=== PATIENT | female | born 1965 | race Caucasian/White ===

== ENCOUNTER 2020-04-14 18:08 | Inpatient (IN) | payer MEDICARE, MEDICAID ==
[~2020-04-14] VITALS: Ht 160 cm; Wt 84.8 kg
[~2020-04-14 18:08] MED LIST: DIVA-73 PO; DIVA-75 PO; LACO50TA2 PO; PHEN50TA2 PO
[2020-04-14] MEDS ORDERED: SODIUM CHLORIDE 0.9% 1000ML BAG (SEPSIS BOLUS) IV ONE (19:15)
[2020-04-14] MEDS ORDERED: HALOPERIDOL LACTATE 5MG/ML VIAL IM ONE (19:15)
[2020-04-14] MEDS ORDERED: PIPERACILLIN/TAZ 3.375G PREMIX 50 ML IV ONE (19:15)
[2020-04-14] MEDS ORDERED: VANCOMYCIN 1 G PREMIX 200 ML IV ONE (19:15)
[2020-04-14 20:36] LABS: BASOPHILS % 0.4 % (0.0-2.0); EOSINOPHILS % 1.1 % (0.0-5.0); HEMATOCRIT. 30.5 % (36.0-48.0); HEMOGLOBIN. 10.1 g/dL (12.0-16.0); LYMPHOCYTES % 16.7 % (20.0-50.0); MEAN CORPUSCULAR VOLUME 90.8 fL (81.0-99.0); MEAN PLATELET VOLUME 11.8 fl (7.4-10.4); MONOCYTES % 11.6 % (2.0-8.0); NEUTROPHILS % 70.2 % (40.0-76.0); PLATELET 142 x1000/uL (130-400); RED BLOOD CELL COUNT 3.36 mill/uL (4.2-5.4); RED CELL DISTRIBUTION WIDTH 13.3 % (11.6-14.6)
[2020-04-14 20:41] LABS: CHLORIDE 101 mEq/L (98-107)
[2020-04-14 20:45] LABS: INR 1.1; PROTHROMBIN TIME 11.1 sec (9.6-11.0)
[2020-04-14] MEDS: ENOXAPARIN 60MG/0.6ML SYR SUBCUT SCH (23:00)
[2020-04-14] MEDS ORDERED: ONDANSETRON HCL 4MG/2ML INJ IV PRN (23:15)
[2020-04-14] MEDS ORDERED: ZOLPIDEM TARTRATE 5MG TABLET PO PRN (23:15)
[2020-04-14] MEDS ORDERED: DOCUSATE SODIUM 100MG CAPSULE PO PRN (23:15)
[2020-04-14] MEDS ORDERED: ACETAMINOPHEN 325MG TABLET PO PRN ×2 (23:15)
[2020-04-14] MEDS ORDERED: IPRATROPIUM/ALBUTEROL 0.5-3(2.5)MG/3ML NEB NEB PRN (23:15)
[2020-04-14] MEDS ORDERED: MAGNESIUM/ALUMINUM HYDROXIDE/SIMETHICONE 30ML UDC PO PRN (23:15)
[2020-04-14] MEDS ORDERED: PIPERACILLIN/TAZ 3.375G PREMIX 50 ML IV SCH (23:15)
[2020-04-14] MEDS ORDERED: KETOROLAC 15MG/ML VIAL IV PRN (23:15)
[2020-04-14] MEDS ORDERED: NITROGLYCERIN 0.4MG TABLET SL SL PRN (23:15)
[2020-04-14] MEDS ORDERED: GUAIFENESIN 200MG/10ML SUGAR FREE UDC PO PRN (23:15)
[2020-04-14] MEDS ORDERED: NOREPINEPHRINE 8MG/250ML PMX 250 ML IV PRN (23:30)
[2020-04-14] MEDS ORDERED: ALBUMIN HUMAN 25GM/100ML (25%) IV NR (23:30)
[2020-04-15 05:34] LABS: BASOPHILS % 0.3 % (0.0-2.0); EOSINOPHILS % 1.8 % (0.0-5.0); HEMATOCRIT. 27.5 % (36.0-48.0); HEMOGLOBIN. 9.4 g/dL (12.0-16.0); LYMPHOCYTES % 11.2 % (20.0-50.0); MEAN PLATELET VOLUME 10.6 fl (7.4-10.4); MONOCYTES % 7.4 % (2.0-8.0); NEUTROPHILS % 79.3 % (40.0-76.0); PLATELET 97 x1000/uL (130-400); RED BLOOD CELL COUNT 3.02 mill/uL (4.2-5.4); RED CELL DISTRIBUTION WIDTH 13.3 % (11.6-14.6)
[2020-04-15 05:40] LABS: CHLORIDE 107 mEq/L (98-107)
[2020-04-15 05:46] LABS: PHOSPHORUS 3.5 mg/dL (2.5-4.9)
[2020-04-15] MEDS: PANTOPRAZOLE SODIUM 40 MG/VIAL IV SCH (09:17)
[2020-04-15] MEDS: DEXT 5%/LACTATED RINGERS 1,000 ML IV SCH ×2 (09:18→09:30)
[2020-04-15] MEDS: PIPERACILLIN/TAZOBACTAM 2.25 G in DEXTROSE 5% WATER 50 ML IV SCH ×2 (09:18→15:52)
[2020-04-15] MEDS: ZINC SULFATE 220 MG ( 50 ) CAPSULE PO SCH (09:25)
[2020-04-15] MEDS: ASPIRIN 325MG TABLET PO SCH (09:25)
[2020-04-15] MEDS: PHENYTOIN SODIUM EXTENDED 100MG CAPSULE PO SCH (09:29)
[2020-04-15] MEDS: ASCORBIC ACID 500 MG TABLET PO SCH (09:29)
[2020-04-15] MEDS: DIVALPROEX SODIUM 250MG ER TABLET PO SCH (09:40)
[2020-04-15] MEDS ORDERED: MAGNESIUM 2 G PREMIX 50 ML IV NR (10:30)
[2020-04-15] MEDS ORDERED: KCL 20MEQ/100ML PREMIX 100 ML IV NR (10:30)
[2020-04-15] MEDS: VANCOMYCIN 1 G PREMIX 200 ML IV SCH (11:17)
[2020-04-15] MEDS ORDERED: VANCOMYCIN 750 MG PREMIX 150 ML IV SCH (12:00)
[2020-04-15] MEDS ORDERED: IPRATROPIUM/ALBUTEROL 0.5-3(2.5)MG/3ML NEB HHN PRN (15:45)
[2020-04-15] MEDS: CLONIDINE 0.1MG TABLET PO PRN (18:49)
[2020-04-15] MEDS ORDERED: NOREPINEPHRINE 8 MG in DEXT 5% WATER 242 ML IV PRN (23:00)
[2020-04-16] MEDS: PHENYTOIN SODIUM EXTENDED 100MG CAPSULE PO SCH ×3 (02:22→20:01)
[2020-04-16] MEDS: ASCORBIC ACID 500 MG TABLET PO SCH ×3 (02:22→20:01)
[2020-04-16] MEDS: ENOXAPARIN 60MG/0.6ML SYR SUBCUT SCH ×2 (02:26→20:04)
[2020-04-16] MEDS: PIPERACILLIN/TAZOBACTAM 2.25 G in DEXTROSE 5% WATER 50 ML IV SCH ×6 (02:37→21:15)
[2020-04-16] MEDS: DEXT 5%/LACTATED RINGERS 1,000 ML IV SCH ×2 (05:15→16:16)
[2020-04-16 06:01] LABS: BASOPHILS % 0.4 % (0.0-2.0); EOSINOPHILS % 5.3 % (0.0-5.0); HEMATOCRIT. 32.1 % (36.0-48.0); LYMPHOCYTES % 11.3 % (20.0-50.0); MEAN CORPUSCULAR HEMOGLOBIN 30.9 pg (28.0-32.0); MEAN CORPUSCULAR VOLUME 89.8 fL (81.0-99.0); MONOCYTES % 8.4 % (2.0-8.0); NEUTROPHILS % 74.6 % (40.0-76.0); PLATELET 118 x1000/uL (130-400); RED BLOOD CELL COUNT 3.57 mill/uL (4.2-5.4); RED CELL DISTRIBUTION WIDTH 13.1 % (11.6-14.6)
[2020-04-16 06:06] LABS: CHLORIDE 108 mEq/L (98-107)
[2020-04-16 06:12] LABS: PHOSPHORUS 1.9 mg/dL (2.5-4.9)
[2020-04-16] MEDS: CLONIDINE 0.1MG TABLET PO PRN ×4 (07:20→22:08)
[2020-04-16] MEDS: ZINC SULFATE 220 MG ( 50 ) CAPSULE PO SCH (09:10)
[2020-04-16] MEDS: ASPIRIN 325MG TABLET PO SCH (09:10)
[2020-04-16] MEDS: TRAMADOL 50MG TABLET PO PRN (09:10)
[2020-04-16] MEDS: DIVALPROEX SODIUM 250MG ER TABLET PO SCH (09:11)
[2020-04-16] MEDS: PANTOPRAZOLE SODIUM 40 MG/VIAL IV SCH (09:12)
[2020-04-16] MEDS: VANCOMYCIN 1 G PREMIX 200 ML IV SCH ×2 (09:12→20:01)
[2020-04-16] MEDS: IPRATROPIUM/ALBUTEROL 0.5-3(2.5)MG/3ML NEB HHN SCH (10:00)
[2020-04-16] MEDS: AMLODIPINE 10MG TABLET PO SCH (10:14)
[2020-04-16 11:30] VITALS: BP 186/78
[2020-04-16] MEDS ORDERED: ONDA4TAB11 PO (12:49)
[2020-04-16] MEDS ORDERED: LEVO88TA7 PO (12:49)
[2020-04-16] MEDS ORDERED: HYDR-4248 TP (12:49)
[2020-04-16] MEDS ORDERED: DICL100G31 TP (12:49)
[2020-04-16] MEDS ORDERED: HALO5TAB PO (12:49)
[2020-04-16] MEDS ORDERED: CHLO50TA22 PO (12:49)
[2020-04-16] MEDS ORDERED: LORA2TAB95 PO (12:49)
[2020-04-16] MEDS ORDERED: LACO50TA2 PO (12:49)
[2020-04-16] MEDS ORDERED: LACT10SO6 PO (12:49)
[2020-04-16] MEDS ORDERED: DIPH25CA83 PO (12:49)
[2020-04-16] MEDS ORDERED: BENZ1TAB7 PO (12:49)
[2020-04-16] MEDS ORDERED: ARIP400S IM (12:49)
[2020-04-16] MEDS ORDERED: NAPR500T7 PO (12:49)
[2020-04-16] MEDS ORDERED: PRAZ1CAP5 PO (12:49)
[2020-04-16] MEDS ORDERED: TRAZ150T78 PO (12:49)
[2020-04-16] MEDS ORDERED: ACET325S17 PO (12:49)
[2020-04-16] MEDS ORDERED: CALC-38 PO (12:49)
[2020-04-16] MEDS ORDERED: CODE473S5 MT (12:49)
[2020-04-16] MEDS ORDERED: PHEN50TA2 PO (12:49)
[2020-04-16] MEDS ORDERED: PANT40TA4 PO (12:49)
[2020-04-16] MEDS ORDERED: CLON0.2T PO (12:49)
[2020-04-16] MEDS ORDERED: QUET200T29 PO (12:49)
[2020-04-16 16:00] VITALS: BP 172/85
[2020-04-16 18:42] VITALS: BP 141/98
[2020-04-16 20:00] VITALS: BP 198/79
[2020-04-16] MEDS ORDERED: VANCOMYCIN 1 G PREMIX 200 ML IV SCH (21:00)
[2020-04-16 22:18] VITALS: BP 204/95
[2020-04-16 23:05] VITALS: BP 156/77
[2020-04-17] VITALS (7 sets, daily range): BP systolic 153–194; BP diastolic 69–88
[2020-04-17] MEDS: DEXT 5%/LACTATED RINGERS 1,000 ML IV SCH ×3 (01:30→21:02)
[2020-04-17] MEDS: PIPERACILLIN/TAZOBACTAM 2.25 G in DEXTROSE 5% WATER 50 ML IV SCH ×4 (03:04→21:02)
[2020-04-17] MEDS: CLONIDINE 0.1MG TABLET PO PRN (04:26)
[2020-04-17 06:51] LABS: CHLORIDE 110 mEq/L (98-107)
[2020-04-17] MEDS: PHENYTOIN SODIUM EXTENDED 100MG CAPSULE PO SCH ×2 (08:31→21:05)
[2020-04-17] MEDS: ASCORBIC ACID 500 MG TABLET PO SCH ×2 (08:32→21:04)
[2020-04-17] MEDS: AMLODIPINE 10MG TABLET PO SCH (08:32)
[2020-04-17] MEDS: DIVALPROEX SODIUM 250MG ER TABLET PO SCH (08:32)
[2020-04-17] MEDS: ZINC SULFATE 220 MG ( 50 ) CAPSULE PO SCH (08:32)
[2020-04-17] MEDS: ASPIRIN 325MG TABLET PO SCH (08:32)
[2020-04-17] MEDS: PANTOPRAZOLE SODIUM 40 MG/VIAL IV SCH (08:32)
[2020-04-17] MEDS: ENOXAPARIN 60MG/0.6ML SYR SUBCUT SCH ×2 (08:33→21:04)
[2020-04-17] MEDS: LISINOPRIL 40MG TABLET PO SCH (09:46)
[2020-04-17] MEDS: METOPROLOL TARTRATE 25MG TABLET PO SCH ×2 (10:36→21:04)
[2020-04-17] MEDS: VANCOMYCIN 1 G PREMIX 200 ML IV SCH ×2 (10:36→23:01)
[2020-04-17] MEDS ORDERED: CLONIDINE HCL 0.3MG/24HR PATCH TD SCH (12:00)
[2020-04-17] MEDS: HYDRALAZINE HCL 50MG TABLET PO SCH ×2 (13:47→21:05)
[2020-04-17] MEDS: IPRATROPIUM/ALBUTEROL 0.5-3(2.5)MG/3ML NEB HHN SCH (21:49)
[2020-04-18] VITALS (7 sets, daily range): BP systolic 153–191; BP diastolic 76–93
[2020-04-18] MEDS: CLONIDINE 0.1MG TABLET PO PRN ×2 (00:42→15:51)
[2020-04-18] MEDS: IPRATROPIUM/ALBUTEROL 0.5-3(2.5)MG/3ML NEB HHN SCH ×4 (02:16→21:25)
[2020-04-18] MEDS: PIPERACILLIN/TAZOBACTAM 2.25 G in DEXTROSE 5% WATER 50 ML IV SCH ×2 (03:25→13:42)
[2020-04-18] MEDS: HYDRALAZINE HCL 50MG TABLET PO SCH ×3 (05:44→21:20)
[2020-04-18] MEDS: DEXT 5%/LACTATED RINGERS 1,000 ML IV SCH ×2 (07:30→18:36)
[2020-04-18] MEDS: ZINC SULFATE 220 MG ( 50 ) CAPSULE PO SCH (10:22)
[2020-04-18] MEDS: PANTOPRAZOLE SODIUM 40 MG/VIAL IV SCH (10:22)
[2020-04-18] MEDS: ASCORBIC ACID 500 MG TABLET PO SCH ×2 (10:22→21:20)
[2020-04-18] MEDS: DIVALPROEX SODIUM 250MG ER TABLET PO SCH (10:22)
[2020-04-18] MEDS: ASPIRIN 325MG TABLET PO SCH (10:23)
[2020-04-18] MEDS: LISINOPRIL 40MG TABLET PO SCH (10:23)
[2020-04-18] MEDS: METOPROLOL TARTRATE 25MG TABLET PO SCH ×2 (10:23→21:21)
[2020-04-18] MEDS: PHENYTOIN SODIUM EXTENDED 100MG CAPSULE PO SCH ×2 (10:23→21:21)
[2020-04-18] MEDS: AMLODIPINE 10MG TABLET PO SCH (10:23)
[2020-04-18] MEDS: VANCOMYCIN 1 G PREMIX 200 ML IV SCH (10:35)
[2020-04-18] MEDS: ENOXAPARIN 60MG/0.6ML SYR SUBCUT SCH ×2 (14:56→19:43)
[2020-04-18] MEDS: PIPERACILLIN/TAZOBACTAM 3.375 G in DEXT 5% WATER 100 ML IV SCH (21:20)
[2020-04-19] VITALS: BP 163/68
[2020-04-19] MEDS: PIPERACILLIN/TAZOBACTAM 3.375 G in DEXT 5% WATER 100 ML IV SCH ×4 (01:30→18:27)
[2020-04-19] MEDS: CLONIDINE 0.1MG TABLET PO PRN ×3 (01:34→19:49)
[2020-04-19] MEDS: IPRATROPIUM/ALBUTEROL 0.5-3(2.5)MG/3ML NEB HHN SCH ×4 (02:34→20:52)
[2020-04-19] MEDS: DEXT 5%/LACTATED RINGERS 1,000 ML IV SCH (03:38)
[2020-04-19 04:00] VITALS: BP 141/100
[2020-04-19] MEDS: HYDRALAZINE HCL 50MG TABLET PO SCH (06:06)
[2020-04-19 08:00] VITALS: BP 203/95
[2020-04-19] MEDS: AMLODIPINE 10MG TABLET PO SCH (08:38)
[2020-04-19] MEDS: METOPROLOL TARTRATE 25MG TABLET PO SCH ×2 (08:38→21:13)
[2020-04-19] MEDS: PHENYTOIN SODIUM EXTENDED 100MG CAPSULE PO SCH (08:38)
[2020-04-19] MEDS: ZINC SULFATE 220 MG ( 50 ) CAPSULE PO SCH (08:38)
[2020-04-19] MEDS: DIVALPROEX SODIUM 250MG ER TABLET PO SCH ×2 (08:38→08:59)
[2020-04-19] MEDS: LISINOPRIL 40MG TABLET PO SCH (08:39)
[2020-04-19] MEDS: ASCORBIC ACID 500 MG TABLET PO SCH ×2 (08:39→21:13)
[2020-04-19] MEDS: ASPIRIN 325MG TABLET PO SCH (08:39)
[2020-04-19] MEDS: ENOXAPARIN 60MG/0.6ML SYR SUBCUT SCH ×2 (08:40→21:00)
[2020-04-19] MEDS: PANTOPRAZOLE SODIUM 40 MG/VIAL IV SCH (08:45)
[2020-04-19] MEDS ORDERED: DIVALPROEX SODIUM 250MG ER TABLET PO ONE (10:00)
[2020-04-19] MEDS ORDERED: PHENYTOIN SODIUM IV SCH (11:00)
[2020-04-19] MEDS ORDERED: SODIUM CHLORIDE 0.9% IV SCH (11:00)
[2020-04-19] MEDS: NITROGLYCERIN OINT 1GM/INCH UDPKT TD SCH ×3 (11:03→21:14)
[2020-04-19 12:00] VITALS: BP 192/91
[2020-04-19] MEDS: PHENYTOIN SODIUM 100MG/2ML VIAL IV SCH ×2 (13:18→21:13)
[2020-04-19] MEDS: HYDRALAZINE HCL 100MG TABLET PO SCH ×2 (13:18→21:13)
[2020-04-19 16:00] VITALS: BP 170/85
[2020-04-19 18:01] LABS: HEMATOCRIT 34.9 % (36.0-48.0); HEMOGLOBIN 11.8 g/dL (12.0-16.0)
[2020-04-19] MEDS ORDERED: DESMOPRESSIN ACETATE IVPB 20 MCG in SODIUM CHLORIDE 0.9% 50 ML IV NR (19:30)
[2020-04-19 20:00] VITALS: BP 185/94
[2020-04-20] VITALS: BP 148/83
[2020-04-20] MEDS: IPRATROPIUM/ALBUTEROL 0.5-3(2.5)MG/3ML NEB HHN SCH ×3 (02:28→21:42)
[2020-04-20 04:00] VITALS: BP 144/90
[2020-04-20] MEDS: HYDRALAZINE HCL 100MG TABLET PO SCH ×3 (05:36→21:35)
[2020-04-20] MEDS: NITROGLYCERIN OINT 1GM/INCH UDPKT TD SCH ×3 (05:36→21:36)
[2020-04-20 08:00] VITALS: BP 171/91
[2020-04-20] MEDS: DIVALPROEX SODIUM 250MG ER TABLET PO SCH (08:46)
[2020-04-20] MEDS: PHENYTOIN SODIUM 100MG/2ML VIAL IV SCH (08:46)
[2020-04-20] MEDS: LISINOPRIL 40MG TABLET PO SCH (08:47)
[2020-04-20] MEDS: METOPROLOL TARTRATE 25MG TABLET PO SCH ×2 (08:47→21:35)
[2020-04-20] MEDS: ASCORBIC ACID 500 MG TABLET PO SCH ×2 (08:47→21:35)
[2020-04-20] MEDS: ASPIRIN 325MG TABLET PO SCH (08:47)
[2020-04-20] MEDS: PANTOPRAZOLE SODIUM 40 MG/VIAL IV SCH (08:47)
[2020-04-20] MEDS: ZINC SULFATE 220 MG ( 50 ) CAPSULE PO SCH (08:47)
[2020-04-20] MEDS: AMLODIPINE 10MG TABLET PO SCH (08:47)
[2020-04-20] MEDS: ENOXAPARIN 60MG/0.6ML SYR SUBCUT SCH ×2 (08:48→21:36)
[2020-04-20 08:59] LABS: HEMATOCRIT 25.3 % (36.0-48.0); HEMOGLOBIN 8.6 g/dL (12.0-16.0)
[2020-04-20] MEDS: TRAMADOL 50MG TABLET PO PRN (10:24)
[2020-04-20] MEDS: LORAZEPAM 1MG TABLET PO SCH ×2 (11:54→21:35)
[2020-04-20 12:00] VITALS: BP 128/50
[2020-04-20] MEDS: IRON SUCROSE COMPLEX 100 MG/5 ML ML IV SCH (12:01)
[2020-04-20 12:05] LABS: BASOPHILS % 0.6 % (0.0-2.0); EOSINOPHILS % 2.8 % (0.0-5.0); HEMATOCRIT. 23.7 % (36.0-48.0); HEMOGLOBIN. 8.1 g/dL (12.0-16.0); MEAN CORPUSCULAR HEMOGLOBIN 30.5 pg (28.0-32.0); MEAN CORPUSCULAR VOLUME 89.9 fL (81.0-99.0); MEAN PLATELET VOLUME 10.1 fl (7.4-10.4); MONOCYTES % 7.5 % (2.0-8.0); NEUTROPHILS % 78.1 % (40.0-76.0); PLATELET 131 x1000/uL (130-400); RED BLOOD CELL COUNT 2.64 mill/uL (4.2-5.4); RED CELL DISTRIBUTION WIDTH 13.1 % (11.6-14.6)
[2020-04-20 12:11] LABS: INR 1.6; PROTHROMBIN TIME 16.1 sec (9.6-11.0)
[2020-04-20 16:00] VITALS: BP 188/89
[2020-04-20] MEDS: CLONIDINE 0.1MG TABLET PO PRN (17:10)
[2020-04-20] MEDS: HALOPERIDOL LACTATE 5MG/ML VIAL IM PRN (17:25)
[2020-04-20 20:00] VITALS: BP 173/94
[2020-04-20] MEDS ORDERED: PHENYTOIN SODIUM 100MG/2ML VIAL IV SCH (21:00)
[2020-04-21] VITALS: BP 187/97
[2020-04-21 00:52] LABS: HEMATOCRIT 23.9 % (36.0-48.0); HEMOGLOBIN 8.3 g/dL (12.0-16.0)
[2020-04-21] MEDS: IPRATROPIUM/ALBUTEROL 0.5-3(2.5)MG/3ML NEB HHN SCH ×3 (01:54→12:50)
[2020-04-21] MEDS: HALOPERIDOL LACTATE 5MG/ML VIAL IM PRN (03:22)
[2020-04-21 04:00] VITALS: BP 170/94
[2020-04-21] MEDS: LORAZEPAM 1MG TABLET PO SCH ×2 (04:00→12:52)
[2020-04-21] MEDS: HYDRALAZINE HCL 100MG TABLET PO SCH ×2 (06:42→12:18)
[2020-04-21] MEDS: NITROGLYCERIN OINT 1GM/INCH UDPKT TD SCH ×2 (06:42→12:19)
[2020-04-21 08:00] VITALS: BP 191/137
[2020-04-21] MEDS: ENOXAPARIN 60MG/0.6ML SYR SUBCUT SCH (09:00)
[2020-04-21] MEDS: ASPIRIN 325MG TABLET PO SCH (09:00)
[2020-04-21] MEDS: DIVALPROEX SODIUM 250MG ER TABLET PO SCH (09:11)
[2020-04-21] MEDS: ASCORBIC ACID 500 MG TABLET PO SCH (09:11)
[2020-04-21] MEDS: PANTOPRAZOLE SODIUM 40 MG/VIAL IV SCH (09:11)
[2020-04-21] MEDS: ZINC SULFATE 220 MG ( 50 ) CAPSULE PO SCH (09:11)
[2020-04-21] MEDS: IRON SUCROSE COMPLEX 100 MG/5 ML ML IV SCH (09:11)
[2020-04-21] MEDS: AMLODIPINE 10MG TABLET PO SCH (09:20)
[2020-04-21] MEDS: LISINOPRIL 40MG TABLET PO SCH (09:21)
[2020-04-21] MEDS: METOPROLOL TARTRATE 25MG TABLET PO SCH (09:21)
[2020-04-21 11:19] VITALS: BP 175/95
[2020-04-21] MEDS: CLONIDINE 0.1MG TABLET PO PRN (11:36)
[2020-04-21 11:54] LABS: HEMATOCRIT 25.8 % (36.0-48.0); HEMOGLOBIN 9.1 g/dL (12.0-16.0)
[2020-04-21 12:00] VITALS: BP 175/95
== END 2020-04-21 16:00 | DRG 871 ==
LOC: ER 18:20 → 7EST 22:58 → EDBEDREQSVC 04-16 09:54 → ENRESERV 04-16 09:59 → 7EST 04-16 12:26 → 5WST 04-16 21:42
PROVIDERS: ADMIT Internal Medicine; ATTEND Internal Medicine
DX: A41.9 Sepsis, unspecified organism (principal); E43 Unspecified severe protein-calorie malnutrition; I21.4 Non-ST elevation (NSTEMI) myocardial infarction; R65.21 Severe sepsis with septic shock; G92 Toxic encephalopathy; J18.9 Pneumonia, unspecified organism; N17.0 Acute kidney failure with tubular necrosis; E87.1 Hypo-osmolality and hyponatremia; I16.1 Hypertensive emergency; J44.0 Chronic obstructive pulmonary disease with (acute) lower respiratory infection; L03.313 Cellulitis of chest wall; E03.9 Hypothyroidism, unspecified; E78.5 Hyperlipidemia, unspecified; E83.42 Hypomagnesemia; E87.6 Hypokalemia; D72.810 Lymphocytopenia; E11.9 Type 2 diabetes mellitus without complications; F79 Unspecified intellectual disabilities; G40.909 Epilepsy, unspecified, not intractable, without status epilepticus; I10 Essential (primary) hypertension; Y95 Nosocomial condition; Z20.828 Contact with and (suspected) exposure to other viral communicable diseases; Z78.1 Physical restraint status; Z68.33 Body mass index [BMI] 33.0-33.9, adult; Z93.0 Tracheostomy status; Q90.9 Down syndrome, unspecified; Z79.899 Other long term (current) drug therapy; R74.01 Elevation of levels of liver transaminase levels
CPT/HCPCS: 36415; 71045; 80048; 80053; 80185; 80202; 82962; 83605; 83735; 84100; 84145; 84484; 85014; 85018; 85025; 85384; 86850; 86900; 86920; 87635; 92610; 93005; 94640; 99291; A6261; C1893; C9113; J1165; J1630; J1650; J2405; J2543; J2597; J3370; J7030; J7040; J7060; P9047

== ENCOUNTER 2020-07-19 01:50 | Inpatient (IN) | payer MEDICARE, MEDICAID ==
[~2020-07-19] VITALS: Ht 157.5 cm; Wt 73.9 kg
[~2020-07-19 01:50] MED LIST changes: +ACET325S17 PO; +ARIP400S IM; +BENZ1TAB7 PO; +CALC-38 PO; +CHLO50TA22 PO; +CLON0.2T PO; +CODE473S5 MT; +DICL100G31 TP; +DIPH25CA83 PO; +HALO5TAB PO; +HYDR-4248 TP; +LACT10SO6 PO; +LEVO88TA7 PO; +LORA2TAB95 PO; +NAPR500T7 PO; +ONDA4TAB11 PO; +PANT40TA51 PO; +PRAZ1CAP5 PO; +QUET200T29 PO; +TRAZ150T78 PO
[2020-07-19] MEDS ORDERED: AZITHROMYCIN 500 MG in DEXT 5% WATER 250 ML IV ONE (02:30)
[2020-07-19] MEDS ORDERED: CEFTRIAXONE 1 G PREMIX 50 ML IV ONE (02:30)
[2020-07-19 02:36] LABS: BASOPHILS % 0.4 % (0.0-2.0); EOSINOPHILS % 0.8 % (0.0-5.0); HEMATOCRIT. 37.3 % (36.0-48.0); HEMOGLOBIN. 11.9 g/dL (12.0-16.0); MEAN PLATELET VOLUME 8.5 fl (7.4-10.4); MONOCYTES % 7.6 % (2.0-8.0); NEUTROPHILS % 80.2 % (40.0-76.0); PLATELET 247 x1000/uL (130-400); RED BLOOD CELL COUNT 3.97 mill/uL (4.2-5.4); RED CELL DISTRIBUTION WIDTH 16.2 % (11.6-14.6)
[2020-07-19 02:43] LABS: CHLORIDE 97 mEq/L (98-107)
[2020-07-19 02:46] LABS: D-DIMER 2.97 mg/L FEU (<0.50); INR 1.5; PROTHROMBIN TIME 15.7 sec (9.6-11.0)
[2020-07-19 03:19] LABS: CLARITY URINE CLEAR (CLEAR); COLOR URINE YELLOW (YELLOW); KETONES URINE NEGATIVE (NEGATIVE); LEUKOCYTE ESTERASE URINE NEGATIVE (NEGATIVE); NITRITE URINE NEGATIVE (NEGATIVE); OCCULT BLOOD URINE TRACE (NEGATIVE); PH URINE 6.5 (4.5-8.0); PROTEIN URINE 3+ (NEGATIVE); SPECIFIC GRAVITY URINE 1.021 (1.005-1.030); UROBILINOGEN URINE 0.2 E.U./dL (0.2-1.0)
[2020-07-19] MEDS ORDERED: HALOPERIDOL LACTATE 5MG/ML VIAL IM SCH (08:30)
[2020-07-19] MEDS ORDERED: NA PHOS,M-B/NA PHOS,DI-BA ENEMA 118ML PR PRN (09:15)
[2020-07-19] MEDS ORDERED: KETOROLAC 15MG/ML VIAL IV PRN (09:15)
[2020-07-19] MEDS ORDERED: GUAIFENESIN 200MG/10ML SUGAR FREE UDC PO PRN (09:15)
[2020-07-19] MEDS ORDERED: ZOLPIDEM TARTRATE 5MG TABLET PO PRN (09:15)
[2020-07-19] MEDS ORDERED: ACETAMINOPHEN 325MG TABLET PO PRN ×2 (09:15)
[2020-07-19] MEDS ORDERED: ONDANSETRON HCL 4MG/2ML INJ IV PRN (09:15)
[2020-07-19] MEDS ORDERED: MAGNESIUM/ALUMINUM HYDROXIDE/SIMETHICONE 30ML UDC PO PRN (09:15)
[2020-07-19] MEDS ORDERED: ALBUTEROL 6.7GM HFA INHALER ORI PRN (09:15)
[2020-07-19] MEDS ORDERED: TRAMADOL 50MG TABLET PO PRN (09:15)
[2020-07-19] MEDS ORDERED: NITROGLYCERIN 0.4MG TABLET SL SL PRN (09:15)
[2020-07-19] MEDS ORDERED: DOCUSATE SODIUM 100MG CAPSULE PO PRN (09:15)
[2020-07-19] MEDS ORDERED: CLONIDINE 0.1MG TABLET PO PRN (09:15)
[2020-07-19] MEDS ORDERED: LORAZEPAM 2MG/ML CPJ IV ONE (09:30)
[2020-07-19] MEDS ORDERED: ENOXAPARIN 60MG/0.6ML SYR SUBCUT SCH (10:00)
[2020-07-19] MEDS: GUAIFENESIN/DM 600MG/30MG ER TAB 12HR PO SCH ×2 (10:57→21:20)
[2020-07-19] MEDS: DIVALPROEX SODIUM 250MG ER TABLET PO SCH (10:57)
[2020-07-19] MEDS: HALOPERIDOL LACTATE 5MG/ML VIAL IM PRN ×2 (13:22→22:32)
[2020-07-19] MEDS ORDERED: LEVOTHYROXINE SODIUM 88MCG TABLET PO NR (14:15)
[2020-07-19] MEDS: ASPIRIN 81MG TABLET PO SCH (15:17)
[2020-07-19] MEDS: VANCOMYCIN 1 G PREMIX 200 ML IV SCH ×2 (17:00→19:05)
[2020-07-19 17:28] LABS: CREATINE KINASE MB FRACTION 1.6 ng/mL (0.5-3.6)
[2020-07-19] MEDS: CEFEPIME 2,000 MG in DEXT 5% WATER 100 ML IV SCH (17:39)
[2020-07-19] MEDS: PHENYTOIN SODIUM 100MG/2ML VIAL IV SCH (18:00)
[2020-07-19] MEDS: ALBUTEROL 6.7GM HFA INHALER ORI SCH (21:00)
[2020-07-19] MEDS: METOPROLOL TARTRATE 25MG TABLET PO SCH (21:18)
[2020-07-19] MEDS: ASCORBIC ACID 500 MG TABLET PO SCH (21:19)
[2020-07-19] MEDS: FAMOTIDINE 20MG TABLET PO SCH (21:19)
[2020-07-19] MEDS: LISINOPRIL 20MG TABLET PO SCH (21:19)
[2020-07-19 22:00] VITALS: BP_SYST 140; BP_SYST 162; BP_DIAS 70; BP_DIAS 99
[2020-07-20 00:26] LABS: CREATINE KINASE MB FRACTION 1.5 ng/mL (0.5-3.6)
[2020-07-20 04:01] VITALS: BP 167/87
[2020-07-20] MEDS: ALBUTEROL 6.7GM HFA INHALER ORI SCH ×2 (04:23→08:38)
[2020-07-20] MEDS: CEFEPIME 2,000 MG in DEXT 5% WATER 100 ML IV SCH ×2 (04:23→21:27)
[2020-07-20] MEDS ORDERED: CEFTRIAXONE 1 G PREMIX 50 ML IV SCH (05:00)
[2020-07-20] MEDS: PHENYTOIN SODIUM 100MG/2ML VIAL IV SCH ×2 (05:21→18:32)
[2020-07-20] MEDS ORDERED: AZITHROMYCIN 500 MG in DEXT 5% WATER 250 ML IV SCH (06:00)
[2020-07-20 08:00] VITALS: BP 108/66
[2020-07-20] MEDS: DIVALPROEX SODIUM 250MG ER TABLET PO SCH (08:19)
[2020-07-20] MEDS: CHOLECALCIFEROL (D3) 1000 UNIT TABLET PO SCH (08:19)
[2020-07-20] MEDS: ZINC SULFATE 220 MG ( 50 ) CAPSULE PO SCH (08:19)
[2020-07-20] MEDS: ENOXAPARIN 40MG/0.4ML SYR SUBCUT SCH (08:19)
[2020-07-20] MEDS: ASCORBIC ACID 500 MG TABLET PO SCH ×2 (08:19→21:27)
[2020-07-20] MEDS: GUAIFENESIN/DM 600MG/30MG ER TAB 12HR PO SCH ×2 (08:19→21:27)
[2020-07-20] MEDS: ASPIRIN 81MG TABLET PO SCH (08:19)
[2020-07-20] MEDS: LISINOPRIL 20MG TABLET PO SCH ×2 (09:00→21:28)
[2020-07-20] MEDS: FAMOTIDINE 20MG TABLET PO SCH ×2 (09:00→21:27)
[2020-07-20] MEDS: METOPROLOL TARTRATE 25MG TABLET PO SCH ×2 (09:00→21:28)
[2020-07-20] MEDS: VANCOMYCIN 1 G PREMIX 200 ML IV SCH ×2 (10:42→23:37)
[2020-07-20 12:00] VITALS: BP 118/72
[2020-07-20] MEDS ORDERED: IPRATROPIUM/ALBUTEROL 0.5-3(2.5)MG/3ML NEB HHN PRN (13:00)
[2020-07-20] MEDS: FUROSEMIDE 40MG/4ML VIAL IVP SCH (13:41)
[2020-07-20 16:00] VITALS: BP 139/75
[2020-07-20 20:00] VITALS: BP 135/98
[2020-07-21] VITALS: BP 136/79
[2020-07-21 04:00] VITALS: BP 135/78
[2020-07-21] MEDS: PHENYTOIN SODIUM 100MG/2ML VIAL IV SCH ×3 (05:43→23:12)
[2020-07-21 07:26] LABS: CHLORIDE 95 mEq/L (98-107)
[2020-07-21 07:46] LABS: BASOPHILS % 0.5 % (0.0-2.0); HEMATOCRIT. 38.9 % (36.0-48.0); HEMOGLOBIN. 12.5 g/dL (12.0-16.0); LYMPHOCYTES % 9.9 % (20.0-50.0); MEAN CORPUSCULAR HEMOGLOBIN 30.1 pg (28.0-32.0); MEAN CORPUSCULAR VOLUME 93.6 fL (81.0-99.0); MEAN PLATELET VOLUME 8.8 fl (7.4-10.4); MONOCYTES % 5.2 % (2.0-8.0); NEUTROPHILS % 78.4 % (40.0-76.0); PLATELET 355 x1000/uL (130-400); RED BLOOD CELL COUNT 4.15 mill/uL (4.2-5.4); RED CELL DISTRIBUTION WIDTH 16.3 % (11.6-14.6)
[2020-07-21 08:00] VITALS: BP 127/77
[2020-07-21] MEDS ORDERED: AZITHROMYCIN 500 MG in DEXT 5% WATER 250 ML IV SCH (08:00)
[2020-07-21] MEDS: CEFEPIME 2,000 MG in DEXT 5% WATER 100 ML IV SCH (09:47)
[2020-07-21] MEDS: ENOXAPARIN 40MG/0.4ML SYR SUBCUT SCH (09:48)
[2020-07-21] MEDS: LISINOPRIL 20MG TABLET PO SCH ×2 (09:48→23:10)
[2020-07-21] MEDS: FUROSEMIDE 40MG/4ML VIAL IVP SCH (09:48)
[2020-07-21] MEDS: ZINC SULFATE 220 MG ( 50 ) CAPSULE PO SCH (09:49)
[2020-07-21] MEDS: ASCORBIC ACID 500 MG TABLET PO SCH ×2 (09:49→23:09)
[2020-07-21] MEDS: ASPIRIN 81MG TABLET PO SCH (09:49)
[2020-07-21] MEDS: FAMOTIDINE 20MG TABLET PO SCH ×2 (09:49→23:08)
[2020-07-21] MEDS: GUAIFENESIN/DM 600MG/30MG ER TAB 12HR PO SCH ×2 (09:49→21:15)
[2020-07-21] MEDS: CHOLECALCIFEROL (D3) 1000 UNIT TABLET PO SCH (09:49)
[2020-07-21] MEDS: METOPROLOL TARTRATE 25MG TABLET PO SCH ×2 (09:49→21:00)
[2020-07-21] MEDS: DIVALPROEX SODIUM 250MG ER TABLET PO SCH (10:10)
[2020-07-21 12:00] VITALS: BP 140/85
[2020-07-21] MEDS: HALOPERIDOL LACTATE 5MG/ML VIAL IM PRN (13:41)
[2020-07-21] MEDS ORDERED: SODIUM POLYSTYRENE SULFONATE 15 G/60 ML BOT PO NR (14:00)
[2020-07-21 16:00] VITALS: BP 155/74
[2020-07-21] MEDS ORDERED: VANCOMYCIN 1 G PREMIX 200 ML IV SCH (18:00)
[2020-07-21 20:00] VITALS: BP 122/77
[2020-07-21] MEDS ORDERED: AZITHROMYCIN 500 MG TABLET PO NR (20:15)
[2020-07-22] VITALS (9 sets, daily range): BP systolic 112–190; BP diastolic 10–118
[2020-07-22] MEDS ORDERED: AZITHROMYCIN 500 MG TABLET PO SCH (09:00)
[2020-07-22] MEDS: FUROSEMIDE 40MG/4ML VIAL IVP SCH (09:55)
[2020-07-22] MEDS: GUAIFENESIN/DM 600MG/30MG ER TAB 12HR PO SCH ×2 (09:55→21:26)
[2020-07-22] MEDS: ENOXAPARIN 40MG/0.4ML SYR SUBCUT SCH (09:55)
[2020-07-22] MEDS: CHOLECALCIFEROL (D3) 1000 UNIT TABLET PO SCH (09:56)
[2020-07-22] MEDS: ASPIRIN 81MG TABLET PO SCH (09:56)
[2020-07-22] MEDS: METOPROLOL TARTRATE 25MG TABLET PO SCH ×2 (09:56→21:21)
[2020-07-22] MEDS: DIVALPROEX SODIUM 250MG ER TABLET PO SCH (09:56)
[2020-07-22] MEDS: ASCORBIC ACID 500 MG TABLET PO SCH ×2 (09:56→21:20)
[2020-07-22] MEDS: FAMOTIDINE 20MG TABLET PO SCH ×2 (09:56→21:21)
[2020-07-22] MEDS: ZINC SULFATE 220 MG ( 50 ) CAPSULE PO SCH (09:56)
[2020-07-22] MEDS: LISINOPRIL 20MG TABLET PO SCH ×2 (09:57→21:22)
[2020-07-22] MEDS: PHENYTOIN SODIUM 100MG/2ML VIAL IV SCH ×2 (11:12→21:31)
[2020-07-23] VITALS (30 sets, daily range): BP systolic 37–184; BP diastolic 14–113
[2020-07-23] MEDS ORDERED: HYDRALAZINE 20MG/ML VIAL IV PRN (00:45)
[2020-07-23] MEDS: MEROPENEM 1,000 MG in SODIUM CHLORIDE 0.9% 100 ML IV SCH ×2 (02:00→11:00)
[2020-07-23 03:09] LABS: BG BASE EXCESS 8.1 mmol/L (-2.0-2.0); BG CARBOXYHEMOGLOBIN 0.5 % (0.5-1.5); BG DEOXYHEMOGLOBIN 22.4 % (0.0-5.0); BG FRACTION INSPIRED OXYGEN 50; BG HCO3 ACT 36.1 mmol/L (22.0-26.0); BG METHEMOGLOBIN 0.2 % (0.0-1.5); BG OXYGEN SATURATION 77.4 % (92.0-98.5); BG OXYHEMOGLOBIN 76.9 % (94.0-97.0); BG PCO2 64.1 mmHg (35.0-45.0); BG PH 7.368 (7.350-7.450); BG PO2 44.2 mmHg (75.0-100.0); BG SAMPLE SITE RIGHT BRACHIAL; BG TOTAL HEMOGLOBIN 15.4 g/dL (12.0-18.0); BG VENT MODE MASK - BIPAP
[2020-07-23] MEDS ORDERED: ETOMIDATE 2MG/ML 10ML VIAL IV ONE (04:05)
[2020-07-23] MEDS ORDERED: SUCCINYLCHOLINE CHLORIDE 200MG/10ML IV ONE (04:05)
[2020-07-23 05:56] LABS: BG BASE EXCESS 6.1 mmol/L (-2.0-2.0); BG CARBOXYHEMOGLOBIN 0.3 % (0.5-1.5); BG DEOXYHEMOGLOBIN 8.4 % (0.0-5.0); BG FRACTION INSPIRED OXYGEN 100; BG HCO3 ACT 31.2 mmol/L (22.0-26.0); BG METHEMOGLOBIN 0.2 % (0.0-1.5); BG OXYGEN SATURATION 91.6 % (92.0-98.5); BG OXYHEMOGLOBIN 91.1 % (94.0-97.0); BG PCO2 46.4 mmHg (35.0-45.0); BG PH 7.446 (7.350-7.450); BG PO2 61.2 mmHg (75.0-100.0); BG SAMPLE SITE RIGHT FEMORAL; BG TOTAL HEMOGLOBIN 15.2 g/dL (12.0-18.0); BG TOTAL RESPIRATORY RATE 24 b/min; BG VENT MODE VENT - AC
[2020-07-23] MEDS ORDERED: PROPOFOL 10MG/ML 100ML 100 ML IV PRN (07:00)
[2020-07-23] MEDS: IPRATROPIUM/ALBUTEROL 0.5-3(2.5)MG/3ML NEB HHN SCH ×3 (08:45→21:15)
[2020-07-23] MEDS: ASCORBIC ACID 500 MG TABLET PO SCH ×2 (09:00→21:21)
[2020-07-23] MEDS: CHOLECALCIFEROL (D3) 1000 UNIT TABLET PO SCH (09:00)
[2020-07-23] MEDS: DIVALPROEX SODIUM 250MG ER TABLET PO SCH (09:00)
[2020-07-23] MEDS: ASPIRIN 81MG TABLET PO SCH (09:00)
[2020-07-23] MEDS ORDERED: FUROSEMIDE 20MG TABLET PO SCH (09:00)
[2020-07-23] MEDS: METOPROLOL TARTRATE 25MG TABLET PO SCH ×2 (09:00→21:00)
[2020-07-23] MEDS: ZINC SULFATE 220 MG ( 50 ) CAPSULE PO SCH (09:00)
[2020-07-23] MEDS: FAMOTIDINE 20MG TABLET PO SCH ×2 (09:00→21:21)
[2020-07-23] MEDS: GUAIFENESIN/DM 600MG/30MG ER TAB 12HR PO SCH ×2 (09:15→21:20)
[2020-07-23] MEDS: NOREPINEPHRINE 32 MG in DEXT 5% WATER 218 ML IV PRN (09:23)
[2020-07-23] MEDS: PHENYTOIN SODIUM 100MG/2ML VIAL IV SCH ×2 (10:00→21:20)
[2020-07-23] MEDS: ALBUMIN HUMAN 12.5GM/50ML (25%) IV SCH ×2 (11:05→19:52)
[2020-07-23 11:33] LABS: BG BASE EXCESS -2.1 mmol/L (-2.0-2.0); BG CARBOXYHEMOGLOBIN 0.1 % (0.5-1.5); BG FRACTION INSPIRED OXYGEN 100; BG HCO3 ACT 23.5 mmol/L (22.0-26.0); BG METHEMOGLOBIN 0.3 % (0.0-1.5); BG OXYHEMOGLOBIN 89.6 % (94.0-97.0); BG PCO2 42.8 mmHg (35.0-45.0); BG PH 7.357 (7.350-7.450); BG PO2 62.9 mmHg (75.0-100.0); BG SAMPLE SITE LEFT RADIAL; BG TOTAL HEMOGLOBIN 16.1 g/dL (12.0-18.0); BG TOTAL RESPIRATORY RATE 26 b/min; BG VENT MODE VENT - AC
[2020-07-23] MEDS ORDERED: FENTANYL CITRATE/PF 1,000 MCG in SODIUM CHLORIDE 0.9% 80 ML IV PRN (12:00)
[2020-07-23] MEDS ORDERED: PHENYLEPHRINE 100 MG in DEXT 5% WATER 240 ML IV PRN (12:00)
[2020-07-23] MEDS ORDERED: VANCOMYCIN 1 G PREMIX 200 ML IV SCH (12:00)
[2020-07-23] MEDS ORDERED: MIDAZOLAM 100MG/100ML PMX 100 ML IV PRN (12:00)
[2020-07-23 12:01] LABS: CHLORIDE 102 mEq/L (98-107)
[2020-07-23] MEDS ORDERED: MIDAZOLAM HCL 100 MG in SODIUM CHLORIDE 0.9% 100 ML IV PRN (12:15)
[2020-07-23] MEDS ORDERED: FENTANYL CITRATE 2,500 MCG in SODIUM CHLORIDE 0.9% 200 ML IV PRN (12:15)
[2020-07-23] MEDS: ENOXAPARIN 80MG/0.8ML SYR SUBCUT SCH (13:00)
[2020-07-23] MEDS ORDERED: AMIODARONE HCL 150 MG in DEXT 5% WATER 100 ML IV SCH (14:00)
[2020-07-23] MEDS: AMIODARONE HCL 900 MG in DEXT 5% WATER 482 ML IV SCH ×2 (14:03→20:11)
[2020-07-23] MEDS: VASOPRESSIN 20 UNIT in SODIUM CHLORIDE 0.9% 99 ML IV PRN ×2 (15:43→22:31)
[2020-07-23] MEDS ORDERED: SODIUM CHLORIDE 0.45% 300 ML IV ONE (16:30)
[2020-07-24] VITALS (20 sets, daily range): BP systolic 47–151; BP diastolic 17–72
[2020-07-24] MEDS: ENOXAPARIN 80MG/0.8ML SYR SUBCUT SCH (00:30)
[2020-07-24 00:39] LABS: BG BASE EXCESS -18.3 mmol/L (-2.0-2.0); BG CARBOXYHEMOGLOBIN 0.5 % (0.5-1.5); BG DEOXYHEMOGLOBIN 11.3 % (0.0-5.0); BG FRACTION INSPIRED OXYGEN 100; BG HCO3 ACT 10.5 mmol/L (22.0-26.0); BG OXYGEN SATURATION 88.6 % (92.0-98.5); BG OXYHEMOGLOBIN 88.2 % (94.0-97.0); BG PCO2 35.3 mmHg (35.0-45.0); BG PH 7.093 (7.350-7.450); BG PO2 75.3 mmHg (75.0-100.0); BG SAMPLE SITE LEFT FEMORAL; BG VENT MODE VENT - AC
[2020-07-24] MEDS: NOREPINEPHRINE 32 MG in DEXT 5% WATER 218 ML IV PRN (02:52)
[2020-07-24] MEDS: IPRATROPIUM/ALBUTEROL 0.5-3(2.5)MG/3ML NEB HHN SCH ×2 (03:22→08:48)
[2020-07-24] MEDS: ALBUMIN HUMAN 12.5GM/50ML (25%) IV SCH (03:43)
[2020-07-24] MEDS ORDERED: SODIUM BICARBONATE 8.4% 1 MEQ/ML 50ML SYR IV ONE ×2 (03:55→06:55)
[2020-07-24] MEDS ORDERED: DEXTROSE 50% WATER 50ML SYRINGE IV ONE ×4 (03:55→06:55)
[2020-07-24] MEDS ORDERED: CALCIUM CHLORIDE 1GM/10ML SYR IV ONE ×2 (03:55→06:55)
[2020-07-24] MEDS ORDERED: EPINEPHRINE 0.1MG/ML (1:10,000) 10ML SYR ONE ×2 (03:55→06:55)
[2020-07-24] MEDS ORDERED: DEXT 10% WATER 1,000 ML IV SCH (04:15)
[2020-07-24] MEDS ORDERED: DEXTROSE 50% WATER 50ML SYRINGE IV PRN (04:45)
[2020-07-24 05:27] LABS: HEMATOCRIT. 36.8 % (36.0-48.0); HEMOGLOBIN. 9.6 g/dL (12.0-16.0); MEAN CORPUSCULAR HEMOGLOBIN 29.1 pg (28.0-32.0); MEAN CORPUSCULAR VOLUME 111.6 fL (81.0-99.0); MEAN PLATELET VOLUME 9.4 fl (7.4-10.4); PLATELET 254 x1000/uL (130-400); RED CELL DISTRIBUTION WIDTH 18.1 % (11.6-14.6)
[2020-07-24 05:34] LABS: CHLORIDE 95 mEq/L (98-107)
[2020-07-24] MEDS: VASOPRESSIN 20 UNIT in SODIUM CHLORIDE 0.9% 99 ML IV PRN (06:41)
[2020-07-24 07:30] LABS: PHOSPHORUS 11.8 mg/dL (2.5-4.9)
[2020-07-24 07:43] LABS: NUCLEATED RED BLOOD CELLS 1 /100 WBC; PLATELET ESTIMATE NORMAL
[2020-07-24] MEDS ORDERED: VANCOMYCIN 1 G PREMIX 200 ML IV SCH (11:00)
== END 2020-07-24 09:45 | disposition expired | DRG 871 ==
LOC: ER 01:50 → 7WST 04:39 → ENRESERV 20:39 → 5WST 07-20 15:03 → 5EST 07-23 04:45
PROVIDERS: ADMIT Internal Medicine; ATTEND Internal Medicine
PROC: 5A12012 Performance of Cardiac Output, Single, Manual (ICD-10-PCS; principal; 2020-07-23)
PROC: 5A09357 Assistance with Respiratory Ventilation, Less than 24 Consecutive Hours, Continuous Positive Airway Pressure (ICD-10-PCS; 2020-07-23)
PROC: 5A1945Z Respiratory Ventilation, 24-96 Consecutive Hours (ICD-10-PCS; 2020-07-23)
PROC: 0BH18EZ Insertion of Endotracheal Airway into Trachea, Via Natural or Artificial Opening Endoscopic (ICD-10-PCS; 2020-07-23)
PROC: 05HY33Z Insertion of Infusion Device into Upper Vein, Percutaneous Approach (ICD-10-PCS; 2020-07-23)
PROC: B54MZZA Ultrasonography of Right Upper Extremity Veins, Guidance (ICD-10-PCS; 2020-07-23)
PROC: 5A12012 Performance of Cardiac Output, Single, Manual (ICD-10-PCS; 2020-07-24)
PROC: 5A12012 Performance of Cardiac Output, Single, Manual (ICD-10-PCS; 2020-07-24)
DX: A41.89 Other specified sepsis (principal); J96.01 Acute respiratory failure with hypoxia; U07.1 COVID-19; J12.82 Pneumonia due to coronavirus disease 2019; E43 Unspecified severe protein-calorie malnutrition; G92 Toxic encephalopathy; R65.21 Severe sepsis with septic shock; I21.A1 Myocardial infarction type 2; E87.2 Acidosis; E87.1 Hypo-osmolality and hyponatremia; J44.0 Chronic obstructive pulmonary disease with (acute) lower respiratory infection; N17.9 Acute kidney failure, unspecified; E03.9 Hypothyroidism, unspecified; E11.9 Type 2 diabetes mellitus without complications; E78.5 Hyperlipidemia, unspecified; E87.5 Hyperkalemia; G40.909 Epilepsy, unspecified, not intractable, without status epilepticus; I16.0 Hypertensive urgency; R74.01 Elevation of levels of liver transaminase levels; B97.89 Other viral agents as the cause of diseases classified elsewhere; D75.89 Other specified diseases of blood and blood-forming organs; F79 Unspecified intellectual disabilities; I45.10 Unspecified right bundle-branch block; I46.9 Cardiac arrest, cause unspecified; I10 Essential (primary) hypertension; I49.01 Ventricular fibrillation; Q90.9 Down syndrome, unspecified; Z51.5 Encounter for palliative care; Z66 Do not resuscitate; Z79.891 Long term (current) use of opiate analgesic; Z79.899 Other long term (current) drug therapy
CPT/HCPCS: 36415; 36600; 71045; 71250; 73030; 76937; 80048; 80053; 80061; 80185; 80202; 81003; 82375; 82550; 82553; 82805; 82962; 83036; 83605; 83735; 83880; 84100; 84132; 84145; 84443; 84478; 84484; 85025; 85379; 87426; 93005; 93306; 93970; 96365; 99291; C1725; C1893; C9803; J0282; J0330; J0360; J0456; J0692; J0696; J1165; J1630; J1650; J1885; J1940; J2060; J2185; J2370; J2704; J3370; J3490; J7050; J7060; P9047; U0003; A4315